=== PATIENT | female | born 1980 | race Two or more races ===

== ENCOUNTER 2017-01-11 00:39 | Emergency (ER) | payer MEDICAID ==
[~2017-01-11] VITALS: Ht 162.6 cm; Wt 98.4 kg
[2017-01-11 00:55] VITALS: BP 140/74
[2017-01-11] MEDS ORDERED: OCUFLOX5 ML BOTH EYES (01:04)
[2017-01-11 01:25] VITALS: BP 140/74
--- NOTE | 2017-01-11 03:01 | Emergency Room Report ---
History of Present Illness General Chief Complaint: Eye Problems Source: Patient Present Illness HPI 36-year-old female presents ED complaining of bilateral eye redness and pain x2 weeks. Patient notes itchiness in the eyes and burning sensation, 5/10, nonradiating. Patient was seen by PMD and was prescribed antibiotic eye drops but states they are not helping. Patient denies fevers or chills. Denies photophobia or blurry vision. No aggravating or leading factors. Denies any other associated symptoms Allergies: Coded Allergies: ACETAMINOPHEN (Verified Allergy, Unknown, 01/11/17) LATEX (Verified Allergy, Unknown, 01/11/17) METOCLOPRAMIDE (Verified Allergy, Unknown, 01/11/17) PROPOXYPHENE (Verified Allergy, Unknown, 01/11/17) Patient History Past Medical History: asthma Past Surgical History: none Pertinent Family History: none Social History: Denies: smoking, alcohol use, drug use Last Menstrual Period: 11/13/16 Now: No Immunizations: UTD Reviewed Nursing Documentation: PMH: Agreed, PSxH: Agreed Nursing Documentation-PMH Past Medical History: No History, Except For Hx Hypertension: No - Right Ovarian cysectomy and Appendectomy Hx Asthma: Yes Review of Systems All Other Systems: negative except mentioned in HPI Physical Exam Vital Signs Date Time Temp Pulse Resp B/P (MAP) Pulse Ox O2 Delivery O2 Flow Rate FiO2 01/11/17 00:47 97.9 96 17 144/74 98 Room Air Sp02 EP Interpretation: reviewed, normal General Appearance: no apparent distress, alert, GCS 15, non-toxic Head: normocephalic Eyes: bilateral eye normal inspection, bilateral eye PERRL, bilateral eye EOMI , bilateral eye Scleral Injection ENT: hearing grossly normal, normal pharynx, no angioedema, normal voice Neck: normal inspection Respiratory: normal inspection Cardiovascular #1: normal inspection Gastrointestinal: normal inspection Rectal: deferred Genitourinary: no CVA tenderness Musculoskeletal: normal inspection Neurologic: alert, oriented x3, responsive, motor strength/tone normal, sensory intact, speech normal Psychiatric: normal inspection Skin: normal inspection Lymphatic: normal inspection Medical Decision Making Diagnostic Impression: Primary Impression: Conjunctivitis Qualified Codes: H10.33 - Unspecified acute conjunctivitis, bilateral ER Course Hospital Course 36-year-old F presents to ED with bilateral eye redness and watery discharge Differential diagnoses include: conjunctivitis, traumatic iritis, foreign body, corneal abrasion Clinical course Patient placed on stretcher. After initial history, physical exam revealed a female no acute distress. There is injected conjunctiva and both eyes. Pupils equally reactive to light bilaterally. No evidence of foreign body. Clinical findings consistent with conjunctivitis. patient is currently on opthalmic antibiotics. however since there is no improvement, I will change to Ocuflox. Recommend followup with opthamology Diagnosis - conjunctivitis Stable and discharged to home with prescription for Ocuflox. Followup with PMD/ Optho. Return to ED if symptoms recur or worsen Last Vital Signs Date Time Temp Pulse Resp B/P (MAP) Pulse Ox O2 Delivery O2 Flow Rate FiO2 01/11/17 01:25 97.9 78 16 140/74 99 Room Air Status: improved Disposition: HOME, SELF-CARE Condition: Stable Scripts Ofloxacin (OCUFLOX) 5 Ml Drops 1 DROP BOTH EYES QID for 7 Days, ML Prov: ABEL LORENZ M.D. 01/11/17 Referrals: [facility],REFERRING (PCP) Patient Instructions: Bacterial Conjunctivitis, [id number] ABEL LORENZ M.D. Jan 11, 2017 03:01
== END 2017-01-11 01:25 | disposition home or self-care (01) ==
LOC: EMR 01:19
DX: H10.33 Unspecified acute conjunctivitis, bilateral (principal); Z88.8 Allergy status to other drugs, medicaments and biological substances; Z91.040 Latex allergy status; Z90.89 Acquired absence of other organs
CPT/HCPCS: 99283